=== PATIENT | male | born 1970 | race Caucasian/White ===

== ENCOUNTER 2018-03-30 03:26 | Emergency (ER) | payer OTHER ==
[~2018-03-30] VITALS: Ht 154.9 cm; Wt 61.0 kg
[2018-03-30] MEDS ORDERED: TETANUS, DIPHTHERIA, PERTUSSIS VAC/PF 0.5ML (>7YR OLD) IM ONE (06:30)
[2018-03-30] MEDS ORDERED: ACETAMINOPHEN 325MG TABLET PO ONE (07:15)
[2018-03-30 07:19] LABS: BASOPHILS % 0.2 % (0.0-2.0); HEMATOCRIT. 47.2 % (42.0-52.0); HEMOGLOBIN. 15.9 g/dL (14.0-18.0); LYMPHOCYTES % 13.2 % (20.0-50.0); MEAN CORPUSCULAR HEMOGLOBIN 31.3 pg (28.0-32.0); MEAN CORPUSCULAR VOLUME 92.9 fL (80.0-94.0); MEAN PLATELET VOLUME 7.9 fl (7.4-10.4); MONOCYTES % 6.2 % (2.0-8.0); NEUTROPHILS % 80.4 % (40.0-76.0); PLATELET 393 x1000/uL (130-400); RED BLOOD CELL COUNT 5.09 mill/uL (4.7-6.1); RED CELL DISTRIBUTION WIDTH 14.5 % (11.6-14.6)
[2018-03-30 07:21] LABS: CLARITY URINE CLOUDY (CLEAR); COLOR URINE YELLOW (YELLOW); KETONES URINE NEGATIVE (NEGATIVE); LEUKOCYTE ESTERASE URINE NEGATIVE (NEGATIVE); NITRITE URINE NEGATIVE (NEGATIVE); OCCULT BLOOD URINE TRACE (NEGATIVE); PROTEIN URINE NEGATIVE (NEGATIVE); SPECIFIC GRAVITY URINE 1.012 (1.005-1.030); UROBILINOGEN URINE 0.2 E.U./dL (0.2-1.0)
[2018-03-30 07:24] LABS: CHLORIDE 107 mEq/L (98-107)
[2018-03-30 07:29] LABS: ETHANOL BLOOD 162 mg/dL
[2018-03-30 08:14] LABS: *AMPHETAMINES SCREEN URINE NEGATIVE (NEGATIVE); *BARBITURATES SCREEN URINE NEGATIVE (NEGATIVE); *BENZODIAZEPINES SCREEN URINE NEGATIVE (NEGATIVE); *COCAINE SCREEN URINE NEGATIVE (NEGATIVE); METHADONE URINE SCREEN NEGATIVE (NEGATIVE)
[2018-03-30 08:15] LABS: CANNABINOID URINE SCREEN NEGATIVE (NEGATIVE); OPIATES URINE SCREEN NEGATIVE (NEGATIVE); PHENCYCLIDINE URINE SCREEN NEGATIVE (NEGATIVE)
[2018-03-30] MEDS ORDERED: BACITRACIN ZINC OINT UDPKT TOP ONE (08:30)
[2018-03-30 12:26] VITALS: BP 122/68
== END 2018-03-30 12:28 | disposition home or self-care (01) ==
LOC: ER 03:26
DX: S02.2XXA Fracture of nasal bones, initial encounter for closed fracture (principal); S00.81XA Abrasion of other part of head, initial encounter; M54.2 Cervicalgia; Y04.8XXA Assault by other bodily force, initial encounter; Y93.89 Activity, other specified; Y92.29 Other specified public building as the place of occurrence of the external cause; F10.129 Alcohol abuse with intoxication, unspecified; Y90.6 Blood alcohol level of 120-199 mg/100 ml; G92 Toxic encephalopathy; R03.0 Elevated blood-pressure reading, without diagnosis of hypertension; J34.2 Deviated nasal septum; J01.90 Acute sinusitis, unspecified; J32.0 Chronic maxillary sinusitis; H70.91 Unspecified mastoiditis, right ear; M47.812 Spondylosis without myelopathy or radiculopathy, cervical region; J32.3 Chronic sphenoidal sinusitis; Z23 Encounter for immunization
CPT/HCPCS: 36415; 70450; 70486; 72125; 80053; 80305; 80307; 80329; 81003; 85025; 90471; 90715; 99285; G0482

== ENCOUNTER 2021-05-15 17:35 | Inpatient (IN) | payer MEDICAID, OTHER ==
[~2021-05-15] VITALS: Ht 154.9 cm; Wt 66.7 kg
[2021-05-15 18:26] LABS: BASOPHILS % 0.4 % (0.0-2.0); EOSINOPHILS % 0.1 % (0.0-5.0); HEMATOCRIT. 43.9 % (42.0-52.0); HEMOGLOBIN. 15.5 g/dL (14.0-18.0); LYMPHOCYTES % 11.3 % (20.0-50.0); MEAN CORPUSCULAR HEMOGLOBIN 32.7 pg (28.0-32.0); MEAN CORPUSCULAR VOLUME 92.9 fL (80.0-94.0); MEAN PLATELET VOLUME 7.5 fl (7.4-10.4); NEUTROPHILS % 82.2 % (40.0-76.0); PLATELET 307 x1000/uL (130-400); RED BLOOD CELL COUNT 4.73 mill/uL (4.7-6.1); RED CELL DISTRIBUTION WIDTH 14.3 % (11.6-14.6)
[2021-05-15 18:32] LABS: CHLORIDE 104 mEq/L (98-107)
[2021-05-15 18:38] LABS: ETHANOL BLOOD < 10 mg/dL
[2021-05-15 18:45] LABS: CLARITY URINE CLEAR (CLEAR); COLOR URINE YELLOW (YELLOW); KETONES URINE TRACE (NEGATIVE); LEUKOCYTE ESTERASE URINE NEGATIVE (NEGATIVE); NITRITE URINE NEGATIVE (NEGATIVE); OCCULT BLOOD URINE 2+ (NEGATIVE); PH URINE 5.5 (4.5-8.0); PROTEIN URINE 2+ (NEGATIVE); SPECIFIC GRAVITY URINE 1.016 (1.005-1.030); UROBILINOGEN URINE 0.2 E.U./dL (0.2-1.0)
[2021-05-15 19:05] LABS: *AMPHETAMINES SCREEN URINE NEGATIVE (NEGATIVE); CANNABINOID URINE SCREEN NEGATIVE (NEGATIVE)
[2021-05-15 19:06] LABS: *BARBITURATES SCREEN URINE NEGATIVE (NEGATIVE); *BENZODIAZEPINES SCREEN URINE NEGATIVE (NEGATIVE); *COCAINE SCREEN URINE NEGATIVE (NEGATIVE); METHADONE URINE SCREEN NEGATIVE (NEGATIVE); OPIATES URINE SCREEN NEGATIVE (NEGATIVE); PHENCYCLIDINE URINE SCREEN NEGATIVE (NEGATIVE)
[2021-05-15] MEDS ORDERED: FOLIC ACID 1 MG, THIAMINE HCL 100 MG, MVI, ADULT NO.1 10 ML in DEXTROSE 5% WATER 1,000 ML IV ONE (19:15)
[2021-05-15] MEDS ORDERED: LEVETIRACETAM 500MG PREMIX 100 ML IV ONE (20:30)
[2021-05-15] MEDS ORDERED: PANTOPRAZOLE SODIUM 40 MG/VIAL IV ONE (20:30)
[2021-05-16 00:57] VITALS: BP 163/112
[2021-05-16] MEDS ORDERED: ONDANSETRON HCL 4MG/2ML INJ IV PRN (02:30)
[2021-05-16] MEDS ORDERED: LORAZEPAM 2MG/ML CPJ IV PRN (02:30)
[2021-05-16] MEDS ORDERED: HYDROCODONE/ACETAMINOPHEN 5/325MG TABLET PO PRN (02:30)
[2021-05-16] MEDS ORDERED: DIVA125T31 MT (03:23)
[2021-05-16 04:00] VITALS: BP 135/91
[2021-05-16 06:41] LABS: BASOPHILS % 0.7 % (0.0-2.0); EOSINOPHILS % 0.5 % (0.0-5.0); HEMATOCRIT. 41.9 % (42.0-52.0); LYMPHOCYTES % 26.7 % (20.0-50.0); MEAN CORPUSCULAR HEMOGLOBIN 33.1 pg (28.0-32.0); MEAN CORPUSCULAR VOLUME 92.5 fL (80.0-94.0); MEAN PLATELET VOLUME 7.6 fl (7.4-10.4); MONOCYTES % 11.9 % (2.0-8.0); NEUTROPHILS % 60.2 % (40.0-76.0); PLATELET 250 x1000/uL (130-400); RED BLOOD CELL COUNT 4.53 mill/uL (4.7-6.1); RED CELL DISTRIBUTION WIDTH 14.6 % (11.6-14.6)
[2021-05-16 06:59] LABS: CHLORIDE 104 mEq/L (98-107)
[2021-05-16 08:00] VITALS: BP 136/97
[2021-05-16] MEDS: PANTOPRAZOLE SODIUM 40 MG/VIAL IV SCH (08:44)
[2021-05-16] MEDS: THIAMINE HCL 100MG TABLET PO SCH (08:45)
[2021-05-16] MEDS: MULTIVITAMINS,THER W-MINERALS TABLET PO SCH (08:45)
[2021-05-16] MEDS: LEVETIRACETAM 500MG TABLET PO SCH ×2 (08:45→23:07)
[2021-05-16] MEDS: FOLIC ACID 1MG TABLET PO SCH (08:45)
[2021-05-16 12:00] VITALS: BP 133/87
[2021-05-16 16:00] VITALS: BP 152/91
[2021-05-16 20:00] VITALS: BP 145/100
[2021-05-16] MEDS: CHLORDIAZEPOXIDE 25MG CAPSULE PO SCH (23:07)
[2021-05-17] VITALS: BP 148/92
[2021-05-17 04:00] VITALS: BP 142/95
[2021-05-17 08:00] VITALS: BP 153/104
[2021-05-17] MEDS: CHLORDIAZEPOXIDE 25MG CAPSULE PO SCH ×2 (08:36→13:34)
[2021-05-17] MEDS: FOLIC ACID 1MG TABLET PO SCH (08:36)
[2021-05-17] MEDS: LEVETIRACETAM 500MG TABLET PO SCH (08:36)
[2021-05-17] MEDS: MULTIVITAMINS,THER W-MINERALS TABLET PO SCH (08:36)
[2021-05-17] MEDS: THIAMINE HCL 100MG TABLET PO SCH (08:36)
[2021-05-17] MEDS: PANTOPRAZOLE SODIUM 40 MG/VIAL IV SCH (08:36)
[2021-05-17 12:00] VITALS: BP 124/96
[2021-05-17] MEDS ORDERED: THIA100T72 PO (12:01)
[2021-05-17 13:09] VITALS: BP 124/96
== END 2021-05-17 14:23 | disposition home or self-care (01) | DRG 241 ==
LOC: ER 17:35 → 8WST 21:44 → ENRESERV 23:19
PROVIDERS: ADMIT Internal Medicine; ATTEND Internal Medicine
DX: K29.20 Alcoholic gastritis without bleeding (principal); S09.90XA Unspecified injury of head, initial encounter; G40.509 Epileptic seizures related to external causes, not intractable, without status epilepticus; R74.01 Elevation of levels of liver transaminase levels; Z91.19 Patient's noncompliance with other medical treatment and regimen; Z71.41 Alcohol abuse counseling and surveillance of alcoholic
CPT/HCPCS: 36415; 71045; 80048; 80053; 80076; 80305; 80320; 81003; 82140; 82962; 84443; 85025; 99285; C9113; J1953; J2060; J2405; J3411; J3490; J7070; G0480

== ENCOUNTER 2021-07-04 20:17 | Emergency (ER) | payer MEDICAID, OTHER ==
[~2021-07-04] VITALS: Ht 170.2 cm; Wt 68.0 kg
[~2021-07-04 20:17] MED LIST: DIVA125T31 MT; THIA100T72 PO
[2021-07-04] MEDS ORDERED: SODIUM CHLORIDE 0.9% 1,000 ML IV ONE (20:45)
[2021-07-04] MEDS ORDERED: LEVETIRACETAM 1000MG PREMIX 100 ML IV ONE (20:45)
[2021-07-04] MEDS ORDERED: PANTOPRAZOLE SODIUM 40 MG/VIAL IV ONE (21:00)
[2021-07-04 21:09] LABS: BASOPHILS % 0.5 % (0.0-2.0); EOSINOPHILS % 0.2 % (0.0-5.0); HEMATOCRIT. 44.4 % (42.0-52.0); HEMOGLOBIN. 15.5 g/dL (14.0-18.0); LYMPHOCYTES % 21.1 % (20.0-50.0); MEAN CORPUSCULAR HEMOGLOBIN 32.3 pg (28.0-32.0); MEAN CORPUSCULAR VOLUME 92.4 fL (80.0-94.0); MEAN PLATELET VOLUME 7.5 fl (7.4-10.4); MONOCYTES % 5.9 % (2.0-8.0); NEUTROPHILS % 72.3 % (40.0-76.0); PLATELET 338 x1000/uL (130-400); RED CELL DISTRIBUTION WIDTH 13.8 % (11.6-14.6)
[2021-07-04 21:15] LABS: CHLORIDE 103 mEq/L (98-107)
[2021-07-04 21:19] LABS: ETHANOL BLOOD < 10 mg/dL
[2021-07-05] MEDS ORDERED: LEVE1000 MT (00:38)
[2021-07-05 01:05] VITALS: BP 115/73
== END 2021-07-05 01:42 | disposition home or self-care (01) ==
LOC: ER 20:17
DX: G40.909 Epilepsy, unspecified, not intractable, without status epilepticus (principal); Z91.14 Patient's other noncompliance with medication regimen
CPT/HCPCS: 36415; 71045; 80053; 80320; 82962; 84484; 85025; 96365; 96375; 99284; C9113; J1953; J7030; G0480

== ENCOUNTER 2021-08-03 14:28 | Emergency (ER) | payer OTHER ==
[~2021-08-03] VITALS: Ht 154.9 cm; Wt 61.0 kg
[~2021-08-03 14:28] MED LIST changes: +LEVE1000 MT
[2021-08-03] MEDS ORDERED: ASPI-1497 PO (14:43)
[2021-08-03] MEDS ORDERED: ATORVASTATIN (14:43)
[2021-08-03] MEDS ORDERED: SODIUM CHLORIDE 0.9% 1,000 ML IV ONE (17:30)
[2021-08-03 18:08] LABS: BASOPHILS % 0.6 % (0.0-2.0); EOSINOPHILS % 0.5 % (0.0-5.0); HEMATOCRIT. 44.7 % (42.0-52.0); HEMOGLOBIN. 15.7 g/dL (14.0-18.0); LYMPHOCYTES % 43.8 % (20.0-50.0); MEAN CORPUSCULAR HEMOGLOBIN 32.2 pg (28.0-32.0); MEAN CORPUSCULAR VOLUME 91.8 fL (80.0-94.0); MEAN PLATELET VOLUME 7.2 fl (7.4-10.4); MONOCYTES % 7.7 % (2.0-8.0); NEUTROPHILS % 47.4 % (40.0-76.0); PLATELET 350 x1000/uL (130-400); RED BLOOD CELL COUNT 4.87 mill/uL (4.7-6.1); RED CELL DISTRIBUTION WIDTH 13.8 % (11.6-14.6)
[2021-08-03 18:14] LABS: CHLORIDE 106 mEq/L (98-107)
[2021-08-03 18:17] LABS: ETHANOL BLOOD < 10 mg/dL
[2021-08-03 18:18] LABS: PARTIAL THROMBOPLASTIN TIME 26.9 sec (23.4-31.0); PROTHROMBIN TIME 10.7 sec (9.6-11.0)
[2021-08-03] MEDS ORDERED: CHLORDIAZEPOXIDE 25MG CAPSULE PO ONE (20:45)
[2021-08-03] MEDS ORDERED: LEVETIRACETAM 500MG TABLET PO NR (21:00)
[2021-08-03] MEDS ORDERED: CHLORDIAZEPOXIDE 10MG CAPSULE PO NR (21:00)
[2021-08-03] MEDS: LEVETIRACETAM 500MG TABLET PO ONE ×2 (21:07→21:12)
[2021-08-03 22:40] VITALS: BP 132/93
== END 2021-08-03 22:46 | disposition home or self-care (01) ==
LOC: ER 14:28
DX: R07.9 Chest pain, unspecified (principal); R56.9 Unspecified convulsions
CPT/HCPCS: 36415; 71045; 80053; 80320; 83880; 84484; 85025; 85610; 85730; 87426; 93005; 96360; 99285; J7030; G0480

== ENCOUNTER 2021-09-17 02:03 | Emergency (ER) | payer OTHER ==
[~2021-09-17] VITALS: Ht 154.9 cm; Wt 65.4 kg
[~2021-09-17 02:03] MED LIST changes: +ASPI-1497 PO; +ATORVASTATIN
[2021-09-17] MEDS ORDERED: ONDANSETRON HCL 4MG/2ML INJ IV ONE (03:45)
[2021-09-17] MEDS ORDERED: ASPIRIN 81MG TABLET PO ONE (03:45)
[2021-09-17] MEDS ORDERED: MORPHINE SULFATE 4 MG/ML CPJ (NOT FOR IM USE) IV ONE (03:45)
[2021-09-17] MEDS ORDERED: NITROGLYCERIN OINT 1GM/INCH UDPKT TD ONE (03:45)
[2021-09-17 03:49] LABS: CHLORIDE 104 mEq/L (98-107)
[2021-09-17 03:52] LABS: PROTHROMBIN TIME 10.3 sec (9.6-11.0)
[2021-09-17 03:53] LABS: BASOPHILS % 0.6 % (0.0-2.0); EOSINOPHILS % 0.7 % (0.0-5.0); HEMATOCRIT. 46.5 % (42.0-52.0); HEMOGLOBIN. 15.7 g/dL (14.0-18.0); LYMPHOCYTES % 35.7 % (20.0-50.0); MEAN CORPUSCULAR HEMOGLOBIN 31.5 pg (28.0-32.0); MEAN CORPUSCULAR VOLUME 92.8 fL (80.0-94.0); MEAN PLATELET VOLUME 7.9 fl (7.4-10.4); MONOCYTES % 7.4 % (2.0-8.0); NEUTROPHILS % 55.6 % (40.0-76.0); PLATELET 333 x1000/uL (130-400); RED BLOOD CELL COUNT 5.01 mill/uL (4.7-6.1)
[2021-09-17 08:51] LABS: CLARITY URINE CLEAR (CLEAR); COLOR URINE YELLOW (YELLOW); KETONES URINE NEGATIVE (NEGATIVE); LEUKOCYTE ESTERASE URINE NEGATIVE (NEGATIVE); NITRITE URINE NEGATIVE (NEGATIVE); OCCULT BLOOD URINE NEGATIVE (NEGATIVE); PROTEIN URINE NEGATIVE (NEGATIVE); SPECIFIC GRAVITY URINE 1.016 (1.005-1.030)
[2021-09-17 12:40] VITALS: BP 133/72
== END 2021-09-17 12:42 | disposition home or self-care (01) ==
LOC: ER 02:03
DX: R07.89 Other chest pain (principal); R51.9 Headache, unspecified; R06.02 Shortness of breath; E78.00 Pure hypercholesterolemia, unspecified; I10 Essential (primary) hypertension; Z79.899 Other long term (current) drug therapy
CPT/HCPCS: 36415; 71045; 76705; 80053; 81003; 83880; 84484; 85025; 85610; 93005; 96374; 96375; 99285; J2270; J2405; Z7610

== ENCOUNTER 2021-11-12 17:39 | Inpatient (IN) | payer MEDICAID, OTHER ==
[~2021-11-12] VITALS: Ht 157.5 cm; Wt 64.4 kg
[2021-11-12 21:15] LABS: BASOPHILS % 0.6 % (0.0-2.0); EOSINOPHILS % 0.9 % (0.0-5.0); HEMATOCRIT. 43.5 % (42.0-52.0); HEMOGLOBIN. 14.8 g/dL (14.0-18.0); LYMPHOCYTES % 38.7 % (20.0-50.0); MEAN CORPUSCULAR HEMOGLOBIN 31.3 pg (28.0-32.0); MEAN CORPUSCULAR VOLUME 91.8 fL (80.0-94.0); MEAN PLATELET VOLUME 7.7 fl (7.4-10.4); NEUTROPHILS % 49.8 % (40.0-76.0); PLATELET 332 x1000/uL (130-400); RED BLOOD CELL COUNT 4.73 mill/uL (4.7-6.1); RED CELL DISTRIBUTION WIDTH 14.8 % (11.6-14.6)
[2021-11-12 21:27] LABS: CHLORIDE 106 mEq/L (98-107)
[2021-11-12] MEDS ORDERED: ACETAMINOPHEN 325MG TABLET PO ONE (21:30)
[2021-11-13] MEDS ORDERED: ASPIRIN 325MG EC TABLET PO ONE (00:30)
[2021-11-13 10:00] VITALS: BP_SYST 152; BP_SYST 162; BP_DIAS 105; BP_DIAS 90
[2021-11-13] MEDS ORDERED: ACETAMINOPHEN 325MG TABLET PO PRN (11:15)
[2021-11-13] MEDS ORDERED: LORAZEPAM 2MG/ML CPJ IV PRN (11:15)
[2021-11-13] MEDS ORDERED: ONDANSETRON HCL 4MG/2ML INJ IV PRN (11:15)
[2021-11-13 12:06] VITALS: BP 159/99
[2021-11-13] MEDS: AMLODIPINE 10MG TABLET PO SCH (12:43)
[2021-11-13 16:00] VITALS: BP 149/95
[2021-11-13 20:00] VITALS: BP 149/103
[2021-11-13] MEDS: LISINOPRIL 10MG TABLET PO SCH (22:02)
[2021-11-14 04:00] VITALS: BP 149/103
[2021-11-14 08:00] VITALS: BP 104/72
[2021-11-14] MEDS: LISINOPRIL 10MG TABLET PO SCH (08:47)
[2021-11-14] MEDS: AMLODIPINE 10MG TABLET PO SCH (08:47)
[2021-11-14] MEDS ORDERED: ASPIRIN 81MG TABLET PO SCH (09:00)
[2021-11-14] MEDS ORDERED: THIAMINE HCL 100MG TABLET PO SCH (09:00)
[2021-11-14] MEDS ORDERED: REGADENOSON 0.4 MG/5 ML IV ONE (10:40)
[2021-11-14 12:00] VITALS: BP 131/94
[2021-11-14] MEDS ORDERED: REGADENOSON 0.4 MG/5 ML IV NR (12:00)
[2021-11-14 15:09] VITALS: BP 131/94
== END 2021-11-14 15:40 | disposition home or self-care (01) | DRG 203 ==
LOC: ER 17:39 → 6WST 11-13 00:29 → ENRESERV 11-13 07:21
PROVIDERS: ADMIT Internal Medicine; ATTEND Internal Medicine
DX: R07.89 Other chest pain (principal); E78.00 Pure hypercholesterolemia, unspecified; E78.5 Hyperlipidemia, unspecified; G40.909 Epilepsy, unspecified, not intractable, without status epilepticus; I10 Essential (primary) hypertension; R74.01 Elevation of levels of liver transaminase levels; F10.10 Alcohol abuse, uncomplicated; Y90.9 Presence of alcohol in blood, level not specified; Z79.82 Long term (current) use of aspirin; Z79.899 Other long term (current) drug therapy; Z71.41 Alcohol abuse counseling and surveillance of alcoholic
CPT/HCPCS: 36415; 71045; 78452; 80053; 84484; 85025; 85379; 93005; 93017; 93306; 99285; A9500; J2060; J2785

== ENCOUNTER 2022-03-01 03:12 | Emergency (ER) | payer MEDICAID, OTHER ==
[~2022-03-01] VITALS: Ht 154.9 cm; Wt 64.6 kg
[~2022-03-01 03:12] MED LIST changes: +ASPI-1497 MT; +ATOR40TA70 MT; +LEVE500T98 MT; +LISI2.5T47 MT
[2022-03-01 03:16] VITALS: BP 154/102
== END 2022-03-01 10:22 | disposition left against medical advice (07) ==
LOC: ER 03:12
DX: Z53.21 Procedure and treatment not carried out due to patient leaving prior to being seen by health care provider (principal); R07.9 Chest pain, unspecified; J45.909 Unspecified asthma, uncomplicated; F32.9 Major depressive disorder, single episode, unspecified; I10 Essential (primary) hypertension; R56.9 Unspecified convulsions
CPT/HCPCS: 93005

== ENCOUNTER 2022-03-26 21:47 | Emergency (ER) | payer OTHER ==
[~2022-03-26] VITALS: Ht 165.1 cm; Wt 61.0 kg
[2022-03-26 23:30] VITALS: BP 183/125
[2022-03-26] MEDS ORDERED: MECLIZINE 25MG TABLET PO ONE (23:30)
[2022-03-27 00:52] LABS: BASOPHILS % 0.3 % (0.0-2.0); EOSINOPHILS % 0.6 % (0.0-5.0); HEMATOCRIT. 43.8 % (42.0-52.0); HEMOGLOBIN. 15.1 g/dL (14.0-18.0); LYMPHOCYTES % 38.8 % (20.0-50.0); MEAN CORPUSCULAR HEMOGLOBIN 31.7 pg (28.0-32.0); MEAN PLATELET VOLUME 8.1 fl (7.4-10.4); MONOCYTES % 7.7 % (2.0-8.0); NEUTROPHILS % 52.6 % (40.0-76.0); PLATELET 224 x1000/uL (130-400); RED BLOOD CELL COUNT 4.76 mill/uL (4.7-6.1); RED CELL DISTRIBUTION WIDTH 14.2 % (11.6-14.6)
[2022-03-27 01:01] LABS: CHLORIDE 104 mEq/L (98-107)
[2022-03-27 01:20] LABS: ETHANOL BLOOD < 10 mg/dL
[2022-03-27 01:31] LABS: CLARITY URINE CLEAR (CLEAR); COLOR URINE YELLOW (YELLOW); KETONES URINE NEGATIVE (NEGATIVE); LEUKOCYTE ESTERASE URINE NEGATIVE (NEGATIVE); NITRITE URINE NEGATIVE (NEGATIVE); OCCULT BLOOD URINE NEGATIVE (NEGATIVE); PH URINE 6.5 (4.5-8.0); PROTEIN URINE NEGATIVE (NEGATIVE); SPECIFIC GRAVITY URINE 1.014 (1.005-1.030)
[2022-03-27] MEDS ORDERED: MECLIZINE 25MG TABLET PO NR ×2 (02:15)
[2022-03-27] MEDS ORDERED: ASPIRIN 325MG EC TABLET PO ONE (03:00)
== END 2022-03-27 04:12 | disposition home or self-care (01) ==
LOC: ER 21:47
DX: R42 Dizziness and giddiness (principal); R07.89 Other chest pain; J45.909 Unspecified asthma, uncomplicated; F32.9 Major depressive disorder, single episode, unspecified; I10 Essential (primary) hypertension; Z79.899 Other long term (current) drug therapy
CPT/HCPCS: 36415; 71045; 80053; 80320; 81003; 83605; 83880; 84484; 85025; 93005; 99285; J8597; G0480

== ENCOUNTER 2022-07-29 08:21 | Emergency (ER) | payer MEDICAID, OTHER ==
[~2022-07-29] VITALS: Ht 170.2 cm; Wt 68.0 kg
[2022-07-29] MEDS ORDERED: IBUPROFEN 600MG TABLET PO STA (08:41)
[2022-07-29 10:45] LABS: BASOPHILS % 0.4 % (0.0-2.0); EOSINOPHILS % 0.2 % (0.0-5.0); HEMATOCRIT. 45.5 % (42.0-52.0); HEMOGLOBIN. 15.5 g/dL (14.0-18.0); LYMPHOCYTES % 14.5 % (20.0-50.0); MEAN CORPUSCULAR HEMOGLOBIN 31.8 pg (28.0-32.0); MEAN CORPUSCULAR VOLUME 93.3 fL (80.0-94.0); MEAN PLATELET VOLUME 7.4 fl (7.4-10.4); MONOCYTES % 7.7 % (2.0-8.0); NEUTROPHILS % 77.2 % (40.0-76.0); PLATELET 303 x1000/uL (130-400); RED BLOOD CELL COUNT 4.88 mill/uL (4.7-6.1); RED CELL DISTRIBUTION WIDTH 14.2 % (11.6-14.6)
[2022-07-29 10:55] LABS: CHLORIDE 105 mEq/L (98-107)
[2022-07-29 11:06] LABS: ETHANOL BLOOD 122 mg/dL
[2022-07-29] MEDS ORDERED: CHLORDIAZEPOXIDE 25MG CAPSULE PO ONE (11:15)
[2022-07-29 11:38] LABS: *AMPHETAMINES SCREEN URINE NEGATIVE (NEGATIVE); *BARBITURATES SCREEN URINE NEGATIVE (NEGATIVE); *BENZODIAZEPINES SCREEN URINE NEGATIVE (NEGATIVE); *COCAINE SCREEN URINE NEGATIVE (NEGATIVE); CANNABINOID URINE SCREEN NEGATIVE (NEGATIVE); METHADONE URINE SCREEN NEGATIVE (NEGATIVE); OPIATES URINE SCREEN NEGATIVE (NEGATIVE); PHENCYCLIDINE URINE SCREEN NEGATIVE (NEGATIVE)
[2022-07-29 14:20] VITALS: BP 158/110
== END 2022-07-29 14:40 | disposition home or self-care (01) ==
LOC: ER 08:21
DX: R07.89 Other chest pain (principal); J18.9 Pneumonia, unspecified organism; T51.0X1A Toxic effect of ethanol, accidental (unintentional), initial encounter; Y92.89 Other specified places as the place of occurrence of the external cause; F41.9 Anxiety disorder, unspecified; F32.9 Major depressive disorder, single episode, unspecified; E78.00 Pure hypercholesterolemia, unspecified; I10 Essential (primary) hypertension
CPT/HCPCS: 36415; 71045; 80053; 80305; 80320; 84484; 85025; 93005; 99285; G0480

== ENCOUNTER 2022-08-27 19:32 | Inpatient (IN) | payer OTHER ==
[~2022-08-27] VITALS: Ht 154.9 cm; Wt 64.0 kg
[2022-08-27] MEDS ORDERED: ONDANSETRON HCL 4MG/2ML INJ IV STA (20:18)
[2022-08-27] MEDS ORDERED: LEVETIRACETAM 1000MG PREMIX 100 ML IV ONE (20:30)
[2022-08-27 21:29] LABS: HEMATOCRIT. 44.6 % (42.0-52.0); HEMOGLOBIN. 15.7 g/dL (14.0-18.0); MEAN CORPUSCULAR VOLUME 91.2 fL (80.0-94.0); MEAN PLATELET VOLUME 7.8 fl (7.4-10.4); PLATELET 216 x1000/uL (130-400); RED BLOOD CELL COUNT 4.89 mill/uL (4.7-6.1); RED CELL DISTRIBUTION WIDTH 13.7 % (11.6-14.6)
[2022-08-27 21:44] LABS: CHLORIDE 100 mEq/L (98-107); ETHANOL BLOOD < 10 mg/dL
[2022-08-27 22:04] LABS: PLATELET ESTIMATE NORMAL
[2022-08-27] MEDS ORDERED: AMLODIPINE 10MG TABLET PO ONE (23:45)
[2022-08-28 00:13] LABS: *AMPHETAMINES SCREEN URINE NEGATIVE (NEGATIVE); *BARBITURATES SCREEN URINE NEGATIVE (NEGATIVE); *BENZODIAZEPINES SCREEN URINE NEGATIVE (NEGATIVE); *COCAINE SCREEN URINE NEGATIVE (NEGATIVE); CANNABINOID URINE SCREEN NEGATIVE (NEGATIVE); METHADONE URINE SCREEN NEGATIVE (NEGATIVE); OPIATES URINE SCREEN NEGATIVE (NEGATIVE); PHENCYCLIDINE URINE SCREEN NEGATIVE (NEGATIVE)
[2022-08-28 05:20] VITALS: BP 182/119
[2022-08-28 05:45] VITALS: BP 182/119
[2022-08-28] MEDS ORDERED: CLONIDINE 0.1MG TABLET PO PRN (06:00)
[2022-08-28] MEDS ORDERED: ONDANSETRON HCL 4MG/2ML INJ IV PRN (06:00)
[2022-08-28] MEDS ORDERED: HYDROCODONE/ACETAMINOPHEN 5/325MG TABLET PO PRN (06:00)
[2022-08-28 08:00] VITALS: BP 169/110
[2022-08-28] MEDS: LEVETIRACETAM 500MG TABLET PO SCH ×2 (09:15→20:20)
[2022-08-28] MEDS: AMLODIPINE 10MG TABLET PO SCH (09:15)
[2022-08-28] MEDS: LORAZEPAM 2MG/ML CPJ IV PRN (09:16)
[2022-08-28 11:36] LABS: CHLORIDE 103 mEq/L (98-107)
[2022-08-28 11:46] LABS: HDL CHOLESTEROL 89 mg/dL (40-59); LDL CHOLESTEROL 172 mg/dL (5-100)
[2022-08-28 12:00] VITALS: BP 131/90
[2022-08-28 14:20] LABS: BASOPHILS % 0.3 % (0.0-2.0); HEMATOCRIT. 45.5 % (42.0-52.0); HEMOGLOBIN. 15.6 g/dL (14.0-18.0); LYMPHOCYTES % 13.7 % (20.0-50.0); MEAN CORPUSCULAR HEMOGLOBIN 32.1 pg (28.0-32.0); MEAN CORPUSCULAR VOLUME 93.3 fL (80.0-94.0); MEAN PLATELET VOLUME 8.5 fl (7.4-10.4); MONOCYTES % 8.1 % (2.0-8.0); NEUTROPHILS % 77.9 % (40.0-76.0); PLATELET 224 x1000/uL (130-400); RED BLOOD CELL COUNT 4.88 mill/uL (4.7-6.1); RED CELL DISTRIBUTION WIDTH 14.2 % (11.6-14.6)
[2022-08-28] MEDS: CHLORDIAZEPOXIDE 25MG CAPSULE PO SCH ×2 (14:23→22:03)
[2022-08-28] MEDS: LOSARTAN POTASSIUM 100 MG TABLET PO SCH (14:23)
[2022-08-28] MEDS ORDERED: POTASSIUM CHLORIDE 20MEQ TABLET SR PO SCH (14:45)
[2022-08-28 16:00] VITALS: BP 131/91
[2022-08-28 20:00] VITALS: BP 130/97
[2022-08-28] MEDS ORDERED: NALOXONE HCL 0.4MG/ML VIAL IV PRN (23:45)
[2022-08-29] VITALS: BP 125/90
[2022-08-29 04:00] VITALS: BP 122/85
[2022-08-29] MEDS: LORAZEPAM 2MG/ML CPJ IV PRN (04:27)
[2022-08-29] MEDS: CHLORDIAZEPOXIDE 25MG CAPSULE PO SCH ×2 (05:20→14:35)
[2022-08-29 06:32] LABS: BASOPHILS % 0.4 % (0.0-2.0); EOSINOPHILS % 0.4 % (0.0-5.0); HEMATOCRIT. 41.6 % (42.0-52.0); HEMOGLOBIN. 14.5 g/dL (14.0-18.0); LYMPHOCYTES % 20.8 % (20.0-50.0); MEAN CORPUSCULAR HEMOGLOBIN 32.3 pg (28.0-32.0); MEAN CORPUSCULAR VOLUME 92.5 fL (80.0-94.0); MEAN PLATELET VOLUME 8.4 fl (7.4-10.4); MONOCYTES % 7.3 % (2.0-8.0); NEUTROPHILS % 71.1 % (40.0-76.0); PLATELET 191 x1000/uL (130-400); RED CELL DISTRIBUTION WIDTH 13.7 % (11.6-14.6)
[2022-08-29 08:00] VITALS: BP 103/78
[2022-08-29 08:34] LABS: CHLORIDE 105 mEq/L (98-107)
[2022-08-29 08:39] LABS: PHOSPHORUS 2.4 mg/dL (2.5-4.9)
[2022-08-29] MEDS: AMLODIPINE 10MG TABLET PO SCH (08:53)
[2022-08-29] MEDS: LOSARTAN POTASSIUM 100 MG TABLET PO SCH (08:53)
[2022-08-29] MEDS: LEVETIRACETAM 500MG TABLET PO SCH (08:53)
[2022-08-29] MEDS ORDERED: THIAMINE HCL 100MG TABLET PO SCH (09:00)
[2022-08-29 12:00] VITALS: BP 125/87
[2022-08-29] MEDS ORDERED: POTASSIUM CHLORIDE 20MEQ TABLET SR PO NR (12:15)
[2022-08-29] MEDS ORDERED: LEVE500T98 MT (13:56)
[2022-08-29] MEDS ORDERED: LOSA100T3 PO (13:57)
[2022-08-29 14:38] VITALS: BP 125/87
== END 2022-08-29 16:45 | disposition home or self-care (01) | DRG 53 ==
LOC: ER 19:32 → EDBEDREQTM 08-28 02:11 → EDBEDREQ 08-28 02:11 → EDBEDREQDT 08-28 02:11 → ENRESERV 08-28 03:46 → 8WST 08-28 05:15
PROVIDERS: ADMIT Internal Medicine; ATTEND Internal Medicine
PROC: 4A00X4Z Measurement of Central Nervous Electrical Activity, External Approach (ICD-10-PCS; principal; 2022-08-28)
DX: G40.89 Other seizures (principal); D72.829 Elevated white blood cell count, unspecified; F10.239 Alcohol dependence with withdrawal, unspecified; E11.9 Type 2 diabetes mellitus without complications; E78.00 Pure hypercholesterolemia, unspecified; I10 Essential (primary) hypertension; I16.0 Hypertensive urgency; F32.A Depression, unspecified; Z91.14 Patient's other noncompliance with medication regimen; Z79.899 Other long term (current) drug therapy; Z71.41 Alcohol abuse counseling and surveillance of alcoholic; Y90.0 Blood alcohol level of less than 20 mg/100 ml
CPT/HCPCS: 36415; 71045; 80048; 80053; 80061; 80305; 80320; 83036; 83605; 83735; 84100; 84484; 85025; 93005; 99291; J1953; J2060; J2405; G0480

== ENCOUNTER 2022-12-05 11:13 | Emergency (ER) | payer MEDICAID, OTHER ==
[~2022-12-05] VITALS: Ht 160 cm; Wt 61.0 kg
[~2022-12-05 11:13] MED LIST changes: -LISI2.5T47 MT; +LOSA100T3 PO
[2022-12-05 11:18] VITALS: BP 152/92
[2022-12-05 12:48] LABS: EOSINOPHILS % 1.3 % (0.0-5.0); HEMATOCRIT. 45.4 % (42.0-52.0); HEMOGLOBIN. 15.6 g/dL (14.0-18.0); LYMPHOCYTES % 34.8 % (20.0-50.0); MEAN CORPUSCULAR HEMOGLOBIN 31.4 pg (28.0-32.0); MEAN CORPUSCULAR VOLUME 91.6 fL (80.0-94.0); MEAN PLATELET VOLUME 7.4 fl (7.4-10.4); NEUTROPHILS % 54.9 % (40.0-76.0); PLATELET 442 x1000/uL (130-400); RED BLOOD CELL COUNT 4.96 mill/uL (4.7-6.1); RED CELL DISTRIBUTION WIDTH 14.2 % (11.6-14.6)
[2022-12-05 12:50] LABS: CHLORIDE 105 mEq/L (98-107)
[2022-12-05 13:03] LABS: ETHANOL BLOOD < 10 mg/dL
[2022-12-05] MEDS ORDERED: ACETAMINOPHEN 325MG TABLET PO ONE (13:15)
[2022-12-05] MEDS ORDERED: DIPHENHYDRAMINE 25MG CAPSULE PO ONE (13:15)
[2022-12-05] MEDS ORDERED: ASPIRIN 325MG EC TABLET PO ONE (15:00)
[2022-12-05] MEDS ORDERED: ASPI-1497 MT (15:32)
[2022-12-05] MEDS ORDERED: N325 SL (15:32)
[2022-12-05 15:33] LABS: *AMPHETAMINES SCREEN URINE NEGATIVE (NEGATIVE); *BARBITURATES SCREEN URINE NEGATIVE (NEGATIVE); *BENZODIAZEPINES SCREEN URINE NEGATIVE (NEGATIVE); *COCAINE SCREEN URINE NEGATIVE (NEGATIVE); CANNABINOID URINE SCREEN NEGATIVE (NEGATIVE); METHADONE URINE SCREEN NEGATIVE (NEGATIVE); OPIATES URINE SCREEN NEGATIVE (NEGATIVE); PHENCYCLIDINE URINE SCREEN NEGATIVE (NEGATIVE)
== END 2022-12-05 15:50 | disposition home or self-care (01) ==
LOC: ER 11:13
DX: R07.9 Chest pain, unspecified (principal); G44.209 Tension-type headache, unspecified, not intractable; I10 Essential (primary) hypertension; R56.9 Unspecified convulsions; Z79.82 Long term (current) use of aspirin
CPT/HCPCS: 36415; 70450; 71045; 80053; 80305; 80320; 83690; 83880; 84484; 85025; 93005; 99285; Q0163; G0480

== ENCOUNTER 2023-02-07 22:55 | Emergency (ER) | payer MEDICAID ==
[~2023-02-07] VITALS: Ht 185.4 cm; Wt 60.0 kg
[~2023-02-07 22:55] MED LIST changes: -LOSA100T3 PO; +LOSA100T4 PO; +N325 SL
[2023-02-07 23:03] VITALS: BP 154/106
[2023-02-08] MEDS ORDERED: LEVETIRACETAM 500MG TABLET PO ONE (10:00)
[2023-02-08 10:05] LABS: BASOPHILS % 0.4 % (0.0-2.0); EOSINOPHILS % 0.2 % (0.0-5.0); HEMOGLOBIN. 15.3 g/dL (14.0-18.0); LYMPHOCYTES % 25.9 % (20.0-50.0); MEAN CORPUSCULAR VOLUME 91.1 fL (80.0-94.0); MEAN PLATELET VOLUME 7.9 fl (7.4-10.4); MONOCYTES % 11.1 % (2.0-8.0); NEUTROPHILS % 62.4 % (40.0-76.0); PLATELET 273 x1000/uL (130-400); RED BLOOD CELL COUNT 4.94 mill/uL (4.7-6.1); RED CELL DISTRIBUTION WIDTH 14.5 % (11.6-14.6)
[2023-02-08 10:09] LABS: CHLORIDE 103 mEq/L (98-107)
[2023-02-08 10:18] LABS: ETHANOL BLOOD < 10 mg/dL
[2023-02-08 11:06] LABS: CLARITY URINE CLEAR (CLEAR); COLOR URINE YELLOW (YELLOW); KETONES URINE NEGATIVE (NEGATIVE); LEUKOCYTE ESTERASE URINE NEGATIVE (NEGATIVE); NITRITE URINE NEGATIVE (NEGATIVE); OCCULT BLOOD URINE NEGATIVE (NEGATIVE); PROTEIN URINE TRACE (NEGATIVE); SPECIFIC GRAVITY URINE 1.013 (1.005-1.030); UROBILINOGEN URINE 0.2 E.U./dL (0.2-1.0)
[2023-02-08] MEDS ORDERED: KEPP500 MT (11:28)
[2023-02-08] MEDS ORDERED: DIVA125C2 MT (11:28)
[2023-02-08] MEDS ORDERED: ACETAMINOPHEN 325MG TABLET PO ONE (11:30)
[2023-02-08 11:32] LABS: *AMPHETAMINES SCREEN URINE NEGATIVE (NEGATIVE); *BARBITURATES SCREEN URINE NEGATIVE (NEGATIVE); *BENZODIAZEPINES SCREEN URINE NEGATIVE (NEGATIVE); *COCAINE SCREEN URINE NEGATIVE (NEGATIVE); CANNABINOID URINE SCREEN NEGATIVE (NEGATIVE); METHADONE URINE SCREEN NEGATIVE (NEGATIVE); OPIATES URINE SCREEN NEGATIVE (NEGATIVE); PHENCYCLIDINE URINE SCREEN NEGATIVE (NEGATIVE)
== END 2023-02-08 12:02 | disposition home or self-care (01) ==
LOC: ER 22:55
DX: R56.9 Unspecified convulsions (principal); F10.10 Alcohol abuse, uncomplicated; N17.9 Acute kidney failure, unspecified; I10 Essential (primary) hypertension; Z79.899 Other long term (current) drug therapy
CPT/HCPCS: 36415; 80053; 80165; 80185; 80305; 80320; 81003; 85025; 93005; 99284; G0480

== ENCOUNTER 2023-03-01 23:28 | Emergency (ER) | payer MEDICAID ==
[~2023-03-01] VITALS: Ht 154.9 cm; Wt 61.0 kg
[~2023-03-01 23:28] MED LIST changes: +DIVA125C2 MT; +KEPP500 MT
[2023-03-02 04:28] LABS: BASOPHILS % 0.4 % (0.0-2.0); EOSINOPHILS % 0.4 % (0.0-5.0); HEMATOCRIT. 43.4 % (42.0-52.0); HEMOGLOBIN. 14.9 g/dL (14.0-18.0); MEAN CORPUSCULAR HEMOGLOBIN 31.6 pg (28.0-32.0); MEAN CORPUSCULAR VOLUME 91.8 fL (80.0-94.0); MEAN PLATELET VOLUME 7.8 fl (7.4-10.4); MONOCYTES % 9.2 % (2.0-8.0); PLATELET 294 x1000/uL (130-400); RED BLOOD CELL COUNT 4.73 mill/uL (4.7-6.1); RED CELL DISTRIBUTION WIDTH 14.8 % (11.6-14.6)
[2023-03-02 04:47] LABS: CHLORIDE 106 mEq/L (98-107)
[2023-03-02] MEDS ORDERED: ACETAMINOPHEN 325MG TABLET PO STA (06:07)
[2023-03-02] MEDS ORDERED: IBUP-2028 MT (09:29)
[2023-03-02 10:07] VITALS: BP 141/86
== END 2023-03-02 10:13 | disposition home or self-care (01) ==
LOC: ER 23:28
DX: R07.89 Other chest pain (principal); N17.9 Acute kidney failure, unspecified; I10 Essential (primary) hypertension; Z79.899 Other long term (current) drug therapy
CPT/HCPCS: 36415; 70450; 71045; 80053; 83690; 84484; 85025; 93005; 99285; Z7610

== ENCOUNTER 2023-04-05 16:57 | Emergency (ER) | payer MEDICAID, OTHER ==
[~2023-04-05] VITALS: Ht 154.9 cm; Wt 62.0 kg
[~2023-04-05 16:57] MED LIST changes: +IBUP-2028 MT
[2023-04-05] MEDS ORDERED: KETOROLAC 60MG/2ML VIAL IM STA (17:41)
[2023-04-05 17:58] LABS: BASOPHILS % 0.6 % (0.0-2.0); HEMOGLOBIN. 14.9 g/dL (14.0-18.0); LYMPHOCYTES % 24.2 % (20.0-50.0); MEAN CORPUSCULAR HEMOGLOBIN 31.2 pg (28.0-32.0); MEAN CORPUSCULAR VOLUME 90.3 fL (80.0-94.0); MEAN PLATELET VOLUME 7.7 fl (7.4-10.4); MONOCYTES % 4.6 % (2.0-8.0); NEUTROPHILS % 70.6 % (40.0-76.0); PLATELET 346 x1000/uL (130-400); RED BLOOD CELL COUNT 4.76 mill/uL (4.7-6.1); RED CELL DISTRIBUTION WIDTH 14.6 % (11.6-14.6)
[2023-04-05 18:10] LABS: CHLORIDE 103 mEq/L (98-107)
[2023-04-05] MEDS ORDERED: KEPP500 MT (21:38)
[2023-04-05 21:56] VITALS: BP 176/109
== END 2023-04-05 22:30 | disposition home or self-care (01) ==
LOC: ER 16:57
DX: R07.89 Other chest pain (principal); I10 Essential (primary) hypertension; Z79.899 Other long term (current) drug therapy
CPT/HCPCS: 36415; 71045; 80053; 83690; 84484; 85025; 93005; 96372; 99285; J1885

== ENCOUNTER 2024-03-31 12:35 | Emergency (ER) | payer MEDICAID ==
[~2024-03-31] VITALS: Ht 167.6 cm; Wt 75.0 kg
[~2024-03-31 12:35] MED LIST changes: -ASPI-1497 PO; +ATOR20TA65 PO; -ATOR40TA70 MT; -ATORVASTATIN; +CETI10TA6 PO; -DIVA125C2 MT; -DIVA125T31 MT; -IBUP-2028 MT; -KEPP500 MT; -LEVE1000 MT; +LEVE500T19 PO; -LEVE500T98 MT; -LOSA100T4 PO; +LOSA25TA26 PO; +MECL-299 PO; -N325 SL; +SEMA0.258 SUBCUT; -THIA100T72 PO
[2024-03-31 12:40] VITALS: TEMP 98.7; O2SAT 97
[2024-03-31 13:25] LABS: BASOPHILS % 0.6 % (0.0-2.0); EOSINOPHILS % 0.8 % (0.0-5.0); HEMATOCRIT. 44.4 % (42.0-52.0); HEMOGLOBIN. 14.8 g/dL (14.0-18.0); LYMPHOCYTES % 47.8 % (20.0-50.0); MEAN CORPUSCULAR HEMOGLOBIN 30.7 pg (28.0-32.0); MEAN CORPUSCULAR HGB CONC 33.3 g/dL (31.0-37.0); MEAN CORPUSCULAR VOLUME 92.1 fL (80.0-94.0); MEAN PLATELET VOLUME 7.7 fl (7.4-10.4); MONOCYTES % 7.1 % (2.0-8.0); NEUTROPHILS % 43.7 % (40.0-76.0); PLATELET 370 x1000/uL (130-400); RED BLOOD CELL COUNT 4.82 mill/uL (4.7-6.1); RED CELL DISTRIBUTION WIDTH 13.9 % (11.6-14.6)
[2024-03-31 13:47] LABS: CHLORIDE 107 mEq/L (98-107); POTASSIUM 3.9 mEq/L (3.5-5.1); SODIUM 138 mEq/L (136-145)
[2024-03-31 13:48] LABS: CALCIUM 9.9 mg/dL (8.7-10.4); CARBON DIOXIDE 22 mEq/L (21-32)
[2024-03-31 13:53] LABS: CREATININE 1.1 mg/dL (0.6-1.3); GLUCOSE 93 mg/dL (70-105); UREA NITROGEN BLOOD 9 mg/dL (9-23)
[2024-03-31 13:54] LABS: ETHANOL BLOOD < 10 mg/dL (<10); TROPONIN I HIGH SENSITIVITY < 4 ng/L (3.0-53)
[2024-03-31] MEDS: LEVETIRACETAM 1000MG PREMIX 100 ML IV ONE (14:15)
[2024-03-31 14:18] LABS: CLARITY URINE CLEAR (CLEAR); COLOR URINE YELLOW (YELLOW); GLUCOSE URINE NEGATIVE (NEGATIVE); KETONES URINE NEGATIVE (NEGATIVE); LEUKOCYTE ESTERASE URINE NEGATIVE (NEGATIVE); NITRITE URINE NEGATIVE (NEGATIVE); OCCULT BLOOD URINE NEGATIVE (NEGATIVE); PH URINE >=9.0 (4.5-8.0); PROTEIN URINE NEGATIVE (NEGATIVE); SPECIFIC GRAVITY URINE 1.007 (1.005-1.030); UROBILINOGEN URINE 0.2 E.U./dL (0.2-1.0)
[2024-03-31 14:30] LABS: *AMPHETAMINES SCREEN URINE NEGATIVE (NEGATIVE); *BARBITURATES SCREEN URINE NEGATIVE (NEGATIVE); *BENZODIAZEPINES SCREEN URINE NEGATIVE (NEGATIVE)
[2024-03-31 14:31] LABS: *COCAINE SCREEN URINE NEGATIVE (NEGATIVE); CANNABINOID URINE SCREEN NEGATIVE (NEGATIVE); ECSTASY MDMA SCREEN URINE NEGATIVE (NEGATIVE); METHADONE URINE SCREEN NEGATIVE (NEGATIVE); OPIATES URINE SCREEN NEGATIVE (NEGATIVE); PHENCYCLIDINE URINE SCREEN NEGATIVE (NEGATIVE)
[2024-03-31] MEDS: ACETAMINOPHEN 325MG TABLET PO ONE (15:18)
[2024-03-31 16:54] LABS: TROPONIN I HIGH SENSITIVITY < 4 ng/L (3.0-53)
[2024-03-31 16:59] VITALS: BP 131/88; PULSE 60; RESP 15
== END 2024-03-31 16:48 | disposition home or self-care (01) ==
LOC: ER 12:35
DX: R07.9 Chest pain, unspecified (principal); I10 Essential (primary) hypertension; E78.00 Pure hypercholesterolemia, unspecified
CPT/HCPCS: 80305; 80048; 81003; 80320; 82962; 83880; 85025; 84484; 36415; 71045; 70450; 93005; 96365; 96366; 99285; J1953; Z7610; G0480

== ENCOUNTER 2024-05-10 21:40 | Emergency (ER) | payer MEDICAID ==
[~2024-05-10] VITALS: Ht 154.9 cm; Wt 61.0 kg
[2024-05-10 21:47] VITALS: TEMP 98.2; O2SAT 100
[2024-05-10 22:58] LABS: BASOPHILS % 0.5 % (0.0-2.0); EOSINOPHILS % 0.3 % (0.0-5.0); HEMATOCRIT. 42.8 % (42.0-52.0); HEMOGLOBIN. 14.5 g/dL (14.0-18.0); LYMPHOCYTES % 35.8 % (20.0-50.0); MEAN CORPUSCULAR HEMOGLOBIN 31.3 pg (28.0-32.0); MEAN CORPUSCULAR HGB CONC 33.9 g/dL (31.0-37.0); MEAN CORPUSCULAR VOLUME 92.6 fL (80.0-94.0); MEAN PLATELET VOLUME 7.6 fl (7.4-10.4); MONOCYTES % 11.4 % (2.0-8.0); PLATELET 277 x1000/uL (130-400); RED BLOOD CELL COUNT 4.63 mill/uL (4.7-6.1); RED CELL DISTRIBUTION WIDTH 14.9 % (11.6-14.6); WHITE BLOOD COUNT 6.6 x1000/uL (4.5-11.0)
[2024-05-10 23:03] LABS: CHLORIDE 106 mEq/L (98-107); POTASSIUM 3.4 mEq/L (3.5-5.1); SODIUM 141 mEq/L (136-145)
[2024-05-10 23:04] LABS: CARBON DIOXIDE 27 mEq/L (21-32)
[2024-05-10 23:09] LABS: GLUCOSE 99 mg/dL (70-105); UREA NITROGEN BLOOD 10 mg/dL (9-23)
[2024-05-10 23:11] LABS: TROPONIN I HIGH SENSITIVITY < 4 ng/L (3.0-53)
[2024-05-11] MEDS ORDERED: KEPP500 MT (01:28)
[2024-05-11] MEDS ORDERED: IBUP-2029 MT (01:28)
[2024-05-11] MEDS: LEVETIRACETAM 500MG TABLET PO ONE (01:48)
[2024-05-11] MEDS: IBUPROFEN 800MG TABLET PO ONE (01:49)
[2024-05-11 01:51] VITALS: BP 170/99; PULSE 61; RESP 16
== END 2024-05-11 01:58 | disposition home or self-care (01) ==
LOC: ER 21:40
DX: R51.9 Headache, unspecified (principal); R56.9 Unspecified convulsions; E78.00 Pure hypercholesterolemia, unspecified; I10 Essential (primary) hypertension; Z79.899 Other long term (current) drug therapy
CPT/HCPCS: 36415; 80048; 84484; 85025; 99284

== ENCOUNTER 2024-06-22 21:32 | Emergency (ER) | payer MEDICAID ==
[~2024-06-22] VITALS: Ht 154.9 cm; Wt 61.0 kg
[~2024-06-22 21:32] MED LIST changes: +IBUP-2029 MT; +KEPP500 MT
[2024-06-22 21:36] VITALS: O2SAT 98
[2024-06-23] MEDS: ACETAMINOPHEN 325MG TABLET PO ONE (00:15)
[2024-06-23 00:19] VITALS: BP 144/83; PULSE 80; RESP 20; TEMP 98.3
== END 2024-06-23 00:20 | disposition home or self-care (01) ==
LOC: ER 21:32
DX: G40.909 Epilepsy, unspecified, not intractable, without status epilepticus (principal); R51.9 Headache, unspecified; I10 Essential (primary) hypertension; Z79.899 Other long term (current) drug therapy
CPT/HCPCS: 99282

== ENCOUNTER 2024-08-11 04:29 | Emergency (ER) | payer MEDICAID ==
[~2024-08-11] VITALS: Ht 157.5 cm; Wt 65.9 kg
[2024-08-11 04:55] VITALS: O2SAT 99
[2024-08-11 05:29] LABS: BASOPHILS % 0.7 % (0.0-2.0); EOSINOPHILS % 2.4 % (0.0-5.0); LYMPHOCYTES % 46.3 % (20.0-50.0); MEAN CORPUSCULAR HEMOGLOBIN 31.1 pg (28.0-32.0); MEAN CORPUSCULAR HGB CONC 34.2 g/dL (31.0-37.0); MEAN CORPUSCULAR VOLUME 91.1 fL (80.0-94.0); MEAN PLATELET VOLUME 7.6 fl (7.4-10.4); MONOCYTES % 8.3 % (2.0-8.0); NEUTROPHILS % 42.3 % (40.0-76.0); PLATELET 375 x1000/uL (130-400); RED BLOOD CELL COUNT 4.82 mill/uL (4.7-6.1); RED CELL DISTRIBUTION WIDTH 14.5 % (11.6-14.6); WHITE BLOOD COUNT 8.6 x1000/uL (4.5-11.0)
[2024-08-11 05:31] LABS: CHLORIDE 107 mEq/L (98-107); SODIUM 139 mEq/L (136-145)
[2024-08-11 05:34] LABS: CARBON DIOXIDE 26 mEq/L (21-32)
[2024-08-11 05:35] LABS: CALCIUM 9.8 mg/dL (8.7-10.4)
[2024-08-11 05:39] LABS: CREATININE 1.1 mg/dL (0.6-1.3); GLUCOSE 98 mg/dL (70-105); UREA NITROGEN BLOOD 12 mg/dL (9-23)
[2024-08-11 05:42] LABS: TROPONIN I HIGH SENSITIVITY < 4 ng/L (3.0-53)
[2024-08-11] MEDS: LEVETIRACETAM 500MG PREMIX 100 ML IV ONE ×2 (05:45→06:00)
[2024-08-11 06:17] LABS: ALANINE AMINOTRANSFERASE 28 IU/L (10-49); ALBUMIN 4.6 g/dL (3.2-4.8); ASPARTATE AMINOTRANSFERASE 20 IU/L (<34); BILIRUBIN DIRECT 0.1 mg/dL (<=3.0); BILIRUBIN TOTAL 0.5 mg/dL (0.1-1.0); PROTEIN TOTAL 7.4 g/dL (6.0-8.3)
[2024-08-11] MEDS: LACTATED RINGERS 1,000 ML IV SCH (07:11)
[2024-08-11 07:14] VITALS: BP 141/92; PULSE 60; RESP 17; TEMP 36.83628; O2SAT 100
== END 2024-08-11 07:00 | disposition home or self-care (01) ==
LOC: ER 04:47
DX: R07.9 Chest pain, unspecified (principal); R56.9 Unspecified convulsions; F10.20 Alcohol dependence, uncomplicated; I10 Essential (primary) hypertension; Z79.899 Other long term (current) drug therapy
CPT/HCPCS: 36415; 71045; 80048; 80076; 82962; 84484; 85025; 93005; 99285

== ENCOUNTER 2024-09-07 17:24 | Emergency (ER) | payer MEDICAID ==
[~2024-09-07] VITALS: Ht 165.1 cm; Wt 75.0 kg
[2024-09-07 17:34] VITALS: BP 145/103; O2SAT 99
[2024-09-07 18:30] LABS: BASOPHILS % 0.5 % (0.0-2.0); EOSINOPHILS % 1.1 % (0.0-5.0); HEMATOCRIT. 46.3 % (42.0-52.0); HEMOGLOBIN. 15.3 g/dL (14.0-18.0); LYMPHOCYTES % 47.3 % (20.0-50.0); MEAN CORPUSCULAR HEMOGLOBIN 30.4 pg (28.0-32.0); MEAN CORPUSCULAR HGB CONC 33.1 g/dL (31.0-37.0); MEAN CORPUSCULAR VOLUME 91.8 fL (80.0-94.0); MEAN PLATELET VOLUME 7.4 fl (7.4-10.4); MONOCYTES % 8.3 % (2.0-8.0); NEUTROPHILS % 42.8 % (40.0-76.0); PLATELET 357 x1000/uL (130-400); RED BLOOD CELL COUNT 5.05 mill/uL (4.7-6.1); RED CELL DISTRIBUTION WIDTH 14.8 % (11.6-14.6); WHITE BLOOD COUNT 6.8 x1000/uL (4.5-11.0)
[2024-09-07 18:35] LABS: CHLORIDE 106 mEq/L (98-107); POTASSIUM 4.2 mEq/L (3.5-5.1); SODIUM 141 mEq/L (136-145)
[2024-09-07 18:36] LABS: CALCIUM 9.5 mg/dL (8.7-10.4); CARBON DIOXIDE 30 mEq/L (21-32)
[2024-09-07 18:41] LABS: CREATININE 1.2 mg/dL (0.6-1.3); GLUCOSE 98 mg/dL (70-105); UREA NITROGEN BLOOD 10 mg/dL (9-23)
[2024-09-07 18:59] LABS: ETHANOL BLOOD < 10 mg/dL (<10); TROPONIN I HIGH SENSITIVITY < 4 ng/L (3.0-53)
[2024-09-07] MEDS: LEVETIRACETAM 500MG TABLET PO ONE (18:59)
[2024-09-07 19:45] LABS: CLARITY URINE CLEAR (CLEAR); COLOR URINE YELLOW (YELLOW); GLUCOSE URINE NEGATIVE (NEGATIVE); KETONES URINE NEGATIVE (NEGATIVE); LEUKOCYTE ESTERASE URINE TRACE (NEGATIVE); NITRITE URINE NEGATIVE (NEGATIVE); OCCULT BLOOD URINE NEGATIVE (NEGATIVE); PH URINE 7.5 (4.5-8.0); PROTEIN URINE NEGATIVE (NEGATIVE); SPECIFIC GRAVITY URINE 1.009 (1.005-1.030)
[2024-09-07 19:56] LABS: WBC URINE 0-2 /hpf (0-2)
[2024-09-07 19:57] LABS: BACTERIA URINE TRACE; RBC URINE NONE SEEN /hpf (0-2); SQUAMOUS EPITHELIAL CELL URINE NONE SEEN /lpf (RARE/1+)
[2024-09-07 19:59] LABS: *AMPHETAMINES SCREEN URINE NEGATIVE (NEGATIVE); *BARBITURATES SCREEN URINE NEGATIVE (NEGATIVE); *BENZODIAZEPINES SCREEN URINE NEGATIVE (NEGATIVE); *COCAINE SCREEN URINE NEGATIVE (NEGATIVE); CANNABINOID URINE SCREEN NEGATIVE (NEGATIVE); ECSTASY MDMA SCREEN URINE NEGATIVE (NEGATIVE); METHADONE URINE SCREEN NEGATIVE (NEGATIVE); OPIATES URINE SCREEN NEGATIVE (NEGATIVE); PHENCYCLIDINE URINE SCREEN NEGATIVE (NEGATIVE)
[2024-09-07 21:43] VITALS: PULSE 75; RESP 18; TEMP 36.94740; O2SAT 99
== END 2024-09-07 21:44 | disposition home or self-care (01) ==
LOC: ER 17:24
DX: G40.909 Epilepsy, unspecified, not intractable, without status epilepticus (principal); I10 Essential (primary) hypertension; F10.20 Alcohol dependence, uncomplicated; Z79.899 Other long term (current) drug therapy; Y90.9 Presence of alcohol in blood, level not specified
CPT/HCPCS: 36415; 80048; 80305; 80320; 81003; 84484; 85025; 99283; G0480

== ENCOUNTER 2024-11-02 23:15 | Emergency (ER) | payer MEDICAID, OTHER ==
[~2024-11-02] VITALS: Ht 167.6 cm; Wt 71.0 kg
[2024-11-02 23:30] VITALS: TEMP 98; O2SAT 100
[2024-11-03 00:07] LABS: BASOPHILS % 0.5 % (0.0-2.0); HEMATOCRIT. 41.3 % (42.0-52.0); HEMOGLOBIN. 13.8 g/dL (14.0-18.0); LYMPHOCYTES % 36.2 % (20.0-50.0); MEAN CORPUSCULAR HEMOGLOBIN 30.4 pg (28.0-32.0); MEAN CORPUSCULAR HGB CONC 33.5 g/dL (31.0-37.0); MEAN CORPUSCULAR VOLUME 90.6 fL (80.0-94.0); MEAN PLATELET VOLUME 7.8 fl (7.4-10.4); MONOCYTES % 8.7 % (2.0-8.0); NEUTROPHILS % 53.6 % (40.0-76.0); PLATELET 343 x1000/uL (130-400); RED BLOOD CELL COUNT 4.55 mill/uL (4.7-6.1); RED CELL DISTRIBUTION WIDTH 14.1 % (11.6-14.6); WHITE BLOOD COUNT 8.6 x1000/uL (4.5-11.0)
[2024-11-03 00:13] LABS: CHLORIDE 107 mEq/L (98-107); POTASSIUM 4.2 mEq/L (3.5-5.1); SODIUM 142 mEq/L (136-145)
[2024-11-03 00:14] LABS: CALCIUM 9.3 mg/dL (8.7-10.4); CARBON DIOXIDE 30 mEq/L (21-32)
[2024-11-03 00:19] LABS: GLUCOSE 89 mg/dL (70-105); UREA NITROGEN BLOOD 16 mg/dL (9-23)
[2024-11-03 00:20] LABS: TROPONIN I HIGH SENSITIVITY 4 ng/L (3.0-53)
[2024-11-03] MEDS: ACETAMINOPHEN 1000MG/100ML 100 ML IV NR (01:28)
[2024-11-03] MEDS: ONDANSETRON HCL 4MG/2ML INJ IV NR (01:28)
[2024-11-03 03:35] LABS: TROPONIN I HIGH SENSITIVITY 5 ng/L (3.0-53)
[2024-11-03] MEDS ORDERED: ACET-2708 MT (03:46)
[2024-11-03] MEDS ORDERED: MECL-299 MT (03:46)
[2024-11-03] MEDS ORDERED: ONDA4TAB50 MT (03:46)
[2024-11-03 04:00] VITALS: BP 134/85; PULSE 59; RESP 13; O2SAT 100
== END 2024-11-03 04:01 | disposition home or self-care (01) ==
LOC: ER 23:15
DX: R07.89 Other chest pain (principal); R42 Dizziness and giddiness; R51.9 Headache, unspecified; F41.9 Anxiety disorder, unspecified; I10 Essential (primary) hypertension; Z79.899 Other long term (current) drug therapy; Z79.82 Long term (current) use of aspirin
CPT/HCPCS: 80048; 85025; 84484 ×2; 36415 ×2; 71045; 93005; 99285; 80320; 83880; 96365; 96375; J2405; G0480; J0131

== ENCOUNTER 2025-01-08 11:49 | Emergency (ER) | payer MEDICAID ==
[~2025-01-08] VITALS: Ht 154.9 cm; Wt 65.0 kg
[~2025-01-08 11:49] MED LIST changes: +ACET-2708 MT; +MECL-299 MT; +OMEP20CA14 PO; +ONDA4TAB50 MT
[2025-01-08 11:54] VITALS: O2SAT 98
[2025-01-08 12:44] LABS: BASOPHILS % 0.3 % (0.0-2.0); EOSINOPHILS % 0.5 % (0.0-5.0); HEMATOCRIT. 42.7 % (42.0-52.0); HEMOGLOBIN. 14.7 g/dL (14.0-18.0); LYMPHOCYTES % 19.3 % (20.0-50.0); MEAN CORPUSCULAR HEMOGLOBIN 30.7 pg (28.0-32.0); MEAN CORPUSCULAR HGB CONC 34.4 g/dL (31.0-37.0); MEAN CORPUSCULAR VOLUME 89.2 fL (80.0-94.0); MEAN PLATELET VOLUME 7.7 fl (7.4-10.4); MONOCYTES % 7.4 % (2.0-8.0); NEUTROPHILS % 72.5 % (40.0-76.0); PLATELET 355 x1000/uL (130-400); RED BLOOD CELL COUNT 4.78 mill/uL (4.7-6.1); RED CELL DISTRIBUTION WIDTH 13.7 % (11.6-14.6); WHITE BLOOD COUNT 12.5 x1000/uL (4.5-11.0)
[2025-01-08 12:48] LABS: CHLORIDE 105 mEq/L (98-107); POTASSIUM 3.5 mEq/L (3.5-5.1); SODIUM 140 mEq/L (136-145)
[2025-01-08 12:49] LABS: CARBON DIOXIDE 25 mEq/L (21-32)
[2025-01-08 12:54] LABS: CREATININE 1.1 mg/dL (0.6-1.3); GLUCOSE 137 mg/dL (70-105); UREA NITROGEN BLOOD 9 mg/dL (9-23)
[2025-01-08] MEDS: LEVETIRACETAM 500MG/5ML CUP PO ONE (13:35)
[2025-01-08] MEDS ORDERED: KEPP500 MT (14:51)
[2025-01-08 15:04] VITALS: BP 130/88; PULSE 112; RESP 18; TEMP 36.6; O2SAT 98
== END 2025-01-08 15:07 | disposition home or self-care (01) ==
LOC: ER 11:49
DX: G40.909 Epilepsy, unspecified, not intractable, without status epilepticus (principal); Z91.148 Patient's other noncompliance with medication regimen for other reason; Z79.899 Other long term (current) drug therapy; Z79.82 Long term (current) use of aspirin
CPT/HCPCS: 36415; 80048; 82962; 85025; 93005; 99284

== ENCOUNTER 2025-02-07 12:07 | Emergency (ER) | payer MEDICAID ==
[~2025-02-07] VITALS: Ht 154.9 cm; Wt 60.8 kg
[2025-02-07 12:13] VITALS: BP 131/97; TEMP 37.1; O2SAT 99
[2025-02-07 12:16] VITALS: PULSE 77; RESP 18; O2SAT 98
[2025-02-07 13:16] LABS: CHLORIDE 105 mEq/L (98-107); POTASSIUM 4.2 mEq/L (3.5-5.1); SODIUM 141 mEq/L (136-145)
[2025-02-07 13:17] LABS: CALCIUM 9.3 mg/dL (8.7-10.4); CARBON DIOXIDE 29 mEq/L (21-32)
[2025-02-07 13:22] LABS: CREATININE 1.1 mg/dL (0.6-1.3); GLUCOSE 108 mg/dL (70-105); UREA NITROGEN BLOOD 12 mg/dL (9-23)
[2025-02-07 13:26] LABS: BASOPHILS % 0.6 % (0.0-2.0); EOSINOPHILS % 1.4 % (0.0-5.0); HEMATOCRIT. 47.7 % (42.0-52.0); HEMOGLOBIN. 15.5 g/dL (14.0-18.0); MEAN CORPUSCULAR HEMOGLOBIN 29.9 pg (28.0-32.0); MEAN CORPUSCULAR HGB CONC 32.6 g/dL (31.0-37.0); MEAN CORPUSCULAR VOLUME 91.7 fL (80.0-94.0); MEAN PLATELET VOLUME 7.8 fl (7.4-10.4); MONOCYTES % 7.7 % (2.0-8.0); NEUTROPHILS % 50.3 % (40.0-76.0); PLATELET 375 x1000/uL (130-400); RED CELL DISTRIBUTION WIDTH 14.2 % (11.6-14.6); WHITE BLOOD COUNT 7.6 x1000/uL (4.5-11.0)
[2025-02-07 13:55] LABS: TROPONIN I HIGH SENSITIVITY < 4 ng/L (3.0-53)
== END 2025-02-07 14:11 | disposition home or self-care (01) ==
LOC: ER 12:56
DX: R07.89 Other chest pain (principal); I10 Essential (primary) hypertension; E78.5 Hyperlipidemia, unspecified; Z79.82 Long term (current) use of aspirin; Z79.899 Other long term (current) drug therapy
CPT/HCPCS: 36415; 71045; 80048; 84484; 85025; 93005; 99285

== ENCOUNTER 2025-03-16 22:20 | Emergency (ER) | payer MEDICAID ==
[~2025-03-16] VITALS: Ht 167.6 cm; Wt 82.0 kg
[2025-03-16 22:32] VITALS: O2SAT 100
[2025-03-16] MEDS: MAGNESIUM/ALUMINUM HYDROXIDE/SIMETHICONE 30ML UDC PO NR (23:10)
[2025-03-16] MEDS: ACETAMINOPHEN 325MG TABLET PO NR (23:10)
[2025-03-16] MEDS: LEVETIRACETAM 500MG TABLET PO NR (23:11)
[2025-03-16] MEDS: VISCOUS LIDOCAINE 2% 15 ML UDC MM NR (23:18)
[2025-03-16 23:19] LABS: BASOPHILS % 0.7 % (0.0-2.0); EOSINOPHILS % 0.6 % (0.0-5.0); HEMATOCRIT. 43.1 % (42.0-52.0); HEMOGLOBIN. 14.8 g/dL (14.0-18.0); LYMPHOCYTES % 29.7 % (20.0-50.0); MEAN CORPUSCULAR HEMOGLOBIN 30.8 pg (28.0-32.0); MEAN CORPUSCULAR HGB CONC 34.3 g/dL (31.0-37.0); MEAN CORPUSCULAR VOLUME 89.8 fL (80.0-94.0); MEAN PLATELET VOLUME 7.6 fl (7.4-10.4); MONOCYTES % 6.2 % (2.0-8.0); NEUTROPHILS % 62.8 % (40.0-76.0); PLATELET 373 x1000/uL (130-400); RED CELL DISTRIBUTION WIDTH 14.2 % (11.6-14.6)
[2025-03-16 23:25] LABS: CHLORIDE 108 mEq/L (98-107); POTASSIUM 3.8 mEq/L (3.5-5.1); SODIUM 141 mEq/L (136-145)
[2025-03-16 23:26] LABS: CALCIUM 10.1 mg/dL (8.7-10.4); CARBON DIOXIDE 26 mEq/L (21-32)
[2025-03-16 23:31] LABS: CREATININE 1.1 mg/dL (0.6-1.3); ETHANOL BLOOD < 10 mg/dL (<10); GLUCOSE 96 mg/dL (70-105); UREA NITROGEN BLOOD 11 mg/dL (9-23)
[2025-03-16 23:39] LABS: *AMPHETAMINES SCREEN URINE NEGATIVE (NEGATIVE); *BENZODIAZEPINES SCREEN URINE NEGATIVE (NEGATIVE)
[2025-03-16 23:40] LABS: *BARBITURATES SCREEN URINE NEGATIVE (NEGATIVE); *COCAINE SCREEN URINE NEGATIVE (NEGATIVE); CANNABINOID URINE SCREEN NEGATIVE (NEGATIVE); ECSTASY MDMA SCREEN URINE NEGATIVE (NEGATIVE); METHADONE URINE SCREEN NEGATIVE (NEGATIVE); OPIATES URINE SCREEN NEGATIVE (NEGATIVE); PHENCYCLIDINE URINE SCREEN NEGATIVE (NEGATIVE)
[2025-03-16 23:53] VITALS: BP 142/97; PULSE 65; RESP 16; TEMP 36.9; O2SAT 98
== END 2025-03-17 00:03 | disposition home or self-care (01) ==
LOC: ER 22:20
DX: R56.9 Unspecified convulsions (principal); R09.A2 Foreign body sensation, throat; I10 Essential (primary) hypertension; Z79.82 Long term (current) use of aspirin; Z79.899 Other long term (current) drug therapy
CPT/HCPCS: 36415; 71045; 80048; 80305; 80320; 85025; 93005; 99285; G0480

== ENCOUNTER 2025-05-20 11:53 | Emergency (ER) | payer MEDICAID ==
[~2025-05-20] VITALS: Ht 165.1 cm; Wt 82.0 kg
[~2025-05-20 11:53] MED LIST changes: -ATOR20TA65 PO; +ATOR40TA70 MT; -CETI10TA6 PO; -IBUP-2029 MT; -KEPP500 MT; -MECL-299 MT; -MECL-299 PO; -ONDA4TAB50 MT
[2025-05-20 11:59] VITALS: O2SAT 98
[2025-05-20 12:30] LABS: BASOPHILS % 0.9 % (0.0-2.0); EOSINOPHILS % 1.2 % (0.0-5.0); HEMATOCRIT. 45.2 % (42.0-52.0); HEMOGLOBIN. 15.1 g/dL (14.0-18.0); LYMPHOCYTES % 39.3 % (20.0-50.0); MEAN CORPUSCULAR HGB CONC 33.5 g/dL (31.0-37.0); MEAN CORPUSCULAR VOLUME 89.5 fL (80.0-94.0); MEAN PLATELET VOLUME 7.5 fl (7.4-10.4); MONOCYTES % 6.8 % (2.0-8.0); NEUTROPHILS % 51.8 % (40.0-76.0); PLATELET 355 x1000/uL (130-400); RED BLOOD CELL COUNT 5.05 mill/uL (4.7-6.1); RED CELL DISTRIBUTION WIDTH 14.3 % (11.6-14.6); WHITE BLOOD COUNT 6.9 x1000/uL (4.5-11.0)
[2025-05-20 12:47] LABS: CARBON DIOXIDE 26 mEq/L (21-32); CHLORIDE 104 mEq/L (98-107); POTASSIUM 4.2 mEq/L (3.5-5.1); SODIUM 144 mEq/L (136-145)
[2025-05-20 12:48] LABS: CALCIUM 9.6 mg/dL (8.7-10.4)
[2025-05-20 12:52] LABS: TROPONIN I HIGH SENSITIVITY < 4 ng/L (3.0-53)
[2025-05-20 12:53] LABS: CREATININE 1.2 mg/dL (0.6-1.3); GLUCOSE 146 mg/dL (70-105); UREA NITROGEN BLOOD 12 mg/dL (9-23)
[2025-05-20] MEDS: KETOROLAC 30MG/ML VIAL IM ONE (13:58)
[2025-05-20 15:04] VITALS: BP 140/91; PULSE 53; RESP 14; TEMP 36.5; O2SAT 100
== END 2025-05-20 15:30 | disposition home or self-care (01) ==
LOC: ER 11:53
DX: R07.89 Other chest pain (principal); R51.9 Headache, unspecified; I51.9 Heart disease, unspecified; Z79.82 Long term (current) use of aspirin; Z79.899 Other long term (current) drug therapy; Z86.59 Personal history of other mental and behavioral disorders
CPT/HCPCS: 80048; 85025; 84484; 36415; 71045; 70450; 93005; 96372; 99285; J1885; Z7610

== ENCOUNTER 2025-06-02 02:30 | Inpatient (IN) | payer MEDICAID ==
[~2025-06-02] VITALS: Ht 154.9 cm; Wt 68.0 kg
[2025-06-02 03:28] LABS: BASOPHILS % 1.0 % (0.0-2.0); EOSINOPHILS % 0.6 % (0.0-5.0); HEMATOCRIT. 39.3 % (42.0-52.0); HEMOGLOBIN. 13.3 g/dL (14.0-18.0); LYMPHOCYTES % 43.0 % (20.0-50.0); MEAN PLATELET VOLUME 7.8 fl (7.4-10.4); MONOCYTES % 10.3 % (2.0-8.0); NEUTROPHILS % 45.1 % (40.0-76.0); PLATELET 307 x1000/uL (130-400); RED BLOOD CELL COUNT 4.43 mill/uL (4.7-6.1); RED CELL DISTRIBUTION WIDTH 13.9 % (11.6-14.6)
[2025-06-02 03:53] LABS: CREATININE 1.0 mg/dL (0.6-1.3); UREA NITROGEN BLOOD 9 mg/dL (9-23)
[2025-06-02 03:54] LABS: ETHANOL BLOOD < 10 mg/dL (<10); TROPONIN I HIGH SENSITIVITY 5 ng/L (3.0-53)
[2025-06-02 06:10] VITALS: BP 145/93; PULSE 63; RESP 20; TEMP 36.7; O2SAT 100
[2025-06-02 06:19] LABS: TROPONIN I HIGH SENSITIVITY 5 ng/L (3.0-53)
[2025-06-02 08:00] VITALS: BP 120/79; PULSE 59; RESP 16; TEMP 36.7; O2SAT 95
[2025-06-02] MEDS ORDERED: ONDANSETRON HCL 4MG/2ML INJ IV PRN (08:30)
[2025-06-02] MEDS ORDERED: LEVETIRACETAM 500 MG in SODIUM CHLORIDE 0.9% 100 ML IV SCH (08:30)
[2025-06-02] MEDS ORDERED: CLONIDINE 0.1MG TABLET PO PRN (08:30)
[2025-06-02] MEDS ORDERED: LORAZEPAM 2MG/ML UD SYRINGE IV PRN (08:30)
[2025-06-02] MEDS ORDERED: ACETAMINOPHEN 325MG TABLET PO PRN ×2 (08:30)
[2025-06-02] MEDS ORDERED: IPRATROPIUM/ALBUTEROL 0.5-3(2.5)MG/3ML NEB HHN PRN (08:30)
[2025-06-02] MEDS: FOLIC ACID 1MG TABLET PO SCH (10:14)
[2025-06-02] MEDS: POTASSIUM CHLORIDE 20MEQ TABLET SR PO NR (10:14)
[2025-06-02] MEDS: LEVETIRACETAM 500MG PREMIX 100 ML IV SCH (10:14)
[2025-06-02] MEDS: MULTIVITAMINS,THER W-MINERALS TABLET PO SCH (10:14)
[2025-06-02] MEDS: THIAMINE HCL 100MG TABLET PO SCH (10:15)
[2025-06-02] MEDS: DEXT 5%/0.45% NACL 1000ML 1,000 ML IV SCH (10:15)
[2025-06-02 12:00] VITALS: BP 116/75; PULSE 60; RESP 18; TEMP 36.6; O2SAT 98
[2025-06-02 12:34] VITALS: BP 145/93; PULSE 63; RESP 20; TEMP 36.7
[2025-06-02 13:16] LABS: CREATINE KINASE MB FRACTION 5.1 ng/mL (0.5-3.6); TROPONIN I HIGH SENSITIVITY 4.0 ng/L (3.0-53)
[2025-06-02] MEDS: CHLORDIAZEPOXIDE 25MG CAPSULE PO SCH (15:48)
[2025-06-02 16:00] VITALS: BP 120/79; PULSE 71; RESP 20; TEMP 36.6; O2SAT 97
[2025-06-02 16:03] LABS: CLARITY URINE CLEAR (CLEAR); COLOR URINE YELLOW (YELLOW); GLUCOSE URINE NEGATIVE (NEGATIVE); KETONES URINE NEGATIVE (NEGATIVE); LEUKOCYTE ESTERASE URINE NEGATIVE (NEGATIVE); NITRITE URINE NEGATIVE (NEGATIVE); OCCULT BLOOD URINE NEGATIVE (NEGATIVE); PH URINE 7.5 (4.5-8.0); PROTEIN URINE NEGATIVE (NEGATIVE); SPECIFIC GRAVITY URINE 1.009 (1.005-1.030); UROBILINOGEN URINE 1.0 E.U./dL (0.2-1.0)
[2025-06-02 16:27] LABS: *AMPHETAMINES SCREEN URINE NEGATIVE (NEGATIVE); *BARBITURATES SCREEN URINE NEGATIVE (NEGATIVE); *BENZODIAZEPINES SCREEN URINE NEGATIVE (NEGATIVE); *COCAINE SCREEN URINE NEGATIVE (NEGATIVE)
[2025-06-02 16:28] LABS: CANNABINOID URINE SCREEN NEGATIVE (NEGATIVE); ECSTASY MDMA SCREEN URINE NEGATIVE (NEGATIVE); METHADONE URINE SCREEN NEGATIVE (NEGATIVE); OPIATES URINE SCREEN NEGATIVE (NEGATIVE); PHENCYCLIDINE URINE SCREEN NEGATIVE (NEGATIVE)
[2025-06-02 20:00] VITALS: BP 111/72; PULSE 77; RESP 18; TEMP 36.4; O2SAT 98
[2025-06-03 04:00] VITALS: BP 112/82; PULSE 61; RESP 18; TEMP 36.3; O2SAT 99
[2025-06-03 07:49] LABS: INR 1.0
[2025-06-03 08:00] VITALS: BP 109/73; PULSE 55; RESP 18; TEMP 36.3; O2SAT 98
[2025-06-03 08:03] LABS: BASOPHILS % 0.6 % (0.0-2.0); EOSINOPHILS % 3.4 % (0.0-5.0); HEMATOCRIT. 41.0 % (42.0-52.0); HEMOGLOBIN. 13.8 g/dL (14.0-18.0); LYMPHOCYTES % 38.7 % (20.0-50.0); MEAN PLATELET VOLUME 8.0 fl (7.4-10.4); MONOCYTES % 8.1 % (2.0-8.0); NEUTROPHILS % 49.2 % (40.0-76.0); PLATELET 317 x1000/uL (130-400); RED BLOOD CELL COUNT 4.60 mill/uL (4.7-6.1); RED CELL DISTRIBUTION WIDTH 13.8 % (11.6-14.6)
[2025-06-03 08:11] LABS: CREATININE 0.9 mg/dL (0.6-1.3); TRIGLYCERIDE 122 mg/dL (0-150); UREA NITROGEN BLOOD 10 mg/dL (9-23)
[2025-06-03 08:12] LABS: LDL CHOLESTEROL 129 mg/dL (5-100); PROTEIN TOTAL 5.8 g/dL (6.0-8.3)
[2025-06-03 08:13] LABS: ASPARTATE AMINOTRANSFERASE 19 IU/L (<34); BILIRUBIN DIRECT 0.2 mg/dL (<=3.0); BILIRUBIN TOTAL 0.9 mg/dL (0.1-1.0); PHOSPHORUS 2.8 mg/dL (2.5-4.9)
[2025-06-03] MEDS: ENOXAPARIN 40MG/0.4ML SYR SUBCUT SCH (09:31)
[2025-06-03 12:00] VITALS: BP 117/82; PULSE 61; RESP 18; TEMP 36.4; O2SAT 98
[2025-06-03 16:00] VITALS: BP 117/76; PULSE 62; RESP 18; TEMP 36.5; O2SAT 97
[2025-06-03 19:46] VITALS: BP 122/77; PULSE 73; RESP 16; TEMP 36.6; O2SAT 97
[2025-06-04] VITALS: BP 125/87; PULSE 66; RESP 18; TEMP 36.3; O2SAT 99
[2025-06-04 04:00] VITALS: BP 123/78; PULSE 68; RESP 18; TEMP 36.4; O2SAT 99
[2025-06-04 08:00] VITALS: BP 110/73; PULSE 70; RESP 18; TEMP 36.5; O2SAT 99
[2025-06-04 12:00] VITALS: BP 115/78; PULSE 67; RESP 18; TEMP 36.2; O2SAT 99
[2025-06-04 16:00] VITALS: BP 107/83; PULSE 73; RESP 20; TEMP 36.3; O2SAT 97
[2025-06-04 20:00] VITALS: BP 119/84; PULSE 67; RESP 20; TEMP 36.4; O2SAT 98
[2025-06-05] VITALS: BP 126/86; PULSE 67; RESP 20; TEMP 36.7; O2SAT 97
[2025-06-05 04:00] VITALS: BP 113/80; PULSE 70; RESP 19; TEMP 36.8; O2SAT 98
[2025-06-05 06:34] LABS: BASOPHILS % 0.7 % (0.0-2.0); EOSINOPHILS % 3.4 % (0.0-5.0); HEMATOCRIT. 40.5 % (42.0-52.0); HEMOGLOBIN. 13.8 g/dL (14.0-18.0); LYMPHOCYTES % 39.6 % (20.0-50.0); MEAN PLATELET VOLUME 7.8 fl (7.4-10.4); MONOCYTES % 7.6 % (2.0-8.0); NEUTROPHILS % 48.7 % (40.0-76.0); PLATELET 302 x1000/uL (130-400); RED BLOOD CELL COUNT 4.54 mill/uL (4.7-6.1); RED CELL DISTRIBUTION WIDTH 14.0 % (11.6-14.6)
[2025-06-05 06:41] LABS: CREATININE 0.9 mg/dL (0.6-1.3); UREA NITROGEN BLOOD 11 mg/dL (9-23)
[2025-06-05 08:00] VITALS: BP 114/73; PULSE 71; RESP 18; TEMP 36.6; O2SAT 99
[2025-06-05] MEDS: DOCUSATE SODIUM 100MG CAPSULE PO PRN (09:04)
[2025-06-05 12:00] VITALS: BP 117/80; PULSE 78; RESP 18; TEMP 36.6; O2SAT 96
[2025-06-05] MEDS: FAMOTIDINE 20MG TABLET PO SCH (12:10)
[2025-06-05] MEDS: CALCIUM CARBONATE 500MG TABLET CHEW PO NR (12:10)
[2025-06-05] MEDS ORDERED: THIA100T88 MT (12:57)
[2025-06-05] MEDS ORDERED: MULT-230 MT (12:57)
[2025-06-05] MEDS ORDERED: FOLI-43 MT (12:57)
[2025-06-05] MEDS ORDERED: CHLO25CA10 MT (12:57)
[2025-06-05] MEDS ORDERED: PANT40TA51 MT (12:57)
[2025-06-05 15:11] VITALS: BP 118/65; PULSE 77; TEMP 97.5; O2SAT 99
== END 2025-06-05 15:30 | disposition home or self-care (01) | DRG 53 ==
LOC: ER 02:30 → EDBEDREQ 03:30 → 7WST 04:35 → EDBEDREQSVC 04:36 → EDBEDREQ 04:36 → EDBEDREQSVC 04:37 → CANRESERV 05:25 → ENRESERV 05:25
PROVIDERS: ADMIT Internal Medicine; ATTEND Internal Medicine
DX: G40.909 Epilepsy, unspecified, not intractable, without status epilepticus (principal); M62.82 Rhabdomyolysis; S09.90XA Unspecified injury of head, initial encounter; Z91.81 History of falling; I11.9 Hypertensive heart disease without heart failure; E87.6 Hypokalemia; R20.2 Paresthesia of skin; R07.9 Chest pain, unspecified; R29.6 Repeated falls; R13.10 Dysphagia, unspecified; K21.9 Gastro-esophageal reflux disease without esophagitis; W18.39XA Other fall on same level, initial encounter; Y92.89 Other specified places as the place of occurrence of the external cause; Y93.89 Activity, other specified; Y99.8 Other external cause status; Z79.899 Other long term (current) drug therapy; Z79.82 Long term (current) use of aspirin
CPT/HCPCS: 36415; 70551; 71045; 80048; 80061; 80076; 80305; 80320; 81003; 82550; 82553; 83605; 83735; 83880; 84100; 84484; 85025; 93005; 99285; A4606; J1650; J1953; G0480

== ENCOUNTER 2025-06-22 15:33 | Emergency (ER) | payer MEDICAID ==
[~2025-06-22] VITALS: Ht 154.9 cm; Wt 61.0 kg
[~2025-06-22 15:33] MED LIST changes: +CHLO25CA10 MT; +FOLI-43 MT; +MULT-230 MT; -OMEP20CA14 PO; +PANT40TA51 MT; +THIA100T88 MT
[2025-06-22 15:35] VITALS: O2SAT 100
[2025-06-22 20:02] LABS: BASOPHILS % 0.6 % (0.0-2.0); EOSINOPHILS % 1.3 % (0.0-5.0); HEMATOCRIT. 43.0 % (42.0-52.0); HEMOGLOBIN. 14.5 g/dL (14.0-18.0); LYMPHOCYTES % 42.3 % (20.0-50.0); MEAN PLATELET VOLUME 7.5 fl (7.4-10.4); MONOCYTES % 6.9 % (2.0-8.0); NEUTROPHILS % 48.9 % (40.0-76.0); PLATELET 391 x1000/uL (130-400); RED BLOOD CELL COUNT 4.81 mill/uL (4.7-6.1); RED CELL DISTRIBUTION WIDTH 14.1 % (11.6-14.6)
[2025-06-22] MEDS: LEVETIRACETAM 1000MG PREMIX 100 ML IV SCH (20:11)
[2025-06-22 20:17] LABS: CREATININE 1.2 mg/dL (0.6-1.3); TROPONIN I HIGH SENSITIVITY < 4 ng/L (3.0-53)
[2025-06-22 20:18] LABS: UREA NITROGEN BLOOD 13 mg/dL (9-23)
[2025-06-22 20:19] LABS: ASPARTATE AMINOTRANSFERASE 15 IU/L (<34)
[2025-06-22 20:20] LABS: BILIRUBIN DIRECT 0.1 mg/dL (<=3.0); BILIRUBIN TOTAL 0.6 mg/dL (0.1-1.0); PROTEIN TOTAL 6.8 g/dL (6.0-8.3)
[2025-06-22 21:17] LABS: TROPONIN I HIGH SENSITIVITY < 4 ng/L (3.0-53)
[2025-06-22] MEDS: LEVETIRACETAM 1000MG PREMIX 100 ML IV ONE (23:08)
[2025-06-23 00:27] VITALS: BP 128/70; PULSE 62; RESP 15; TEMP 36.8; O2SAT 100
== END 2025-06-23 00:41 | disposition home or self-care (01) ==
LOC: ER 15:33
DX: R07.89 Other chest pain (principal); G40.909 Epilepsy, unspecified, not intractable, without status epilepticus; I10 Essential (primary) hypertension; Z79.82 Long term (current) use of aspirin; Z79.899 Other long term (current) drug therapy
CPT/HCPCS: 80076; 80048; 83880; 85025; 84484; 36415; 71045; 70450; 93005; 96365; 96366; 99285; J1953; Z7610